=== PATIENT | male | born 1940 | race Caucasian/White ===

== ENCOUNTER 2017-09-08 04:51 | Day surgery (SDC) | payer MEDICARE ==
[~2017-09-08] VITALS: Ht 172.7 cm; Wt 74.4 kg
[~2017-09-08 04:51] MED LIST: ACET-1966 PO; ACET500T68 PO; ASCO-182 PO; ASPI-1471 PO; CALC600T63 PO; GABA-549 PO; GARL10005 PO; POTA99TA6 PO; SAW450CA3 PO; TRAM-420 PO
[2017-09-08] MEDS ORDERED: THROMBIN (BOVINE) 20,000 UNIT VIAL ONE (06:22)
[2017-09-08] MEDS ORDERED: MIDAZOLAM 2 MG/2 ML VIAL ONE (06:23)
[2017-09-08] MEDS ORDERED: DEXAMETHASONE SOD PHOS 10MG/ML ONE (06:24)
[2017-09-08] MEDS ORDERED: PROPOFOL EMUL(*) 10MG/ML 20 ML 20 ML ONE (06:24)
[2017-09-08] MEDS ORDERED: LIDOCAINE MPF 1% 5 ML VIAL ONE (06:24)
[2017-09-08] MEDS ORDERED: ONDANSETRON 4 MG/2 ML VIAL ONE (06:24)
[2017-09-08] MEDS ORDERED: ROCURONIUM BROM 10 MG/ML 10 ML ONE (06:24)
[2017-09-08] MEDS ORDERED: fentaNYL CITR 100 MCG/2 ML AMP ONE ×2 (06:24→08:56)
[2017-09-08 06:32] VITALS: BP 161/89
[2017-09-08] MEDS ORDERED: GLYCOPYRROLATE 0.2 MG/ML SDV ONE (07:36)
[2017-09-08] MEDS ORDERED: ePHEDrine 25 MG/5 ML DISP.SYR IVP ONE (07:37)
[2017-09-08] MEDS ORDERED: PHENYLEPHRINE 10 MG/1 ML VIAL ONE (07:47)
[2017-09-08] MEDS ORDERED: SUGAMMADEX SOD 500 MG/5 ML SDV ONE (08:15)
[2017-09-08] MEDS ORDERED: NS 0.9% IRRIGATION 1000ML PLCT IR ONE (08:28)
[2017-09-08 09:30] VITALS: BP 161/89
[2017-09-08 10:00] VITALS: BP 124/75
[2017-09-08 10:02] VITALS: BP 113/74
[2017-09-08] MEDS ORDERED: LIDOCAINE/SOD BICARB 8.4% SYR ID ONE (11:45)
[2017-09-08] MEDS ORDERED: ceFAZolin(*) 2GM/D5W 50ML 50 ML IVPB ONE (11:45)
[2017-09-08] MEDS ORDERED: FAMOTIDINE 20 MG TAB PO ONE (11:45)
[2017-09-08] MEDS ORDERED: NORMOSOL R SOLN(*) 1000 ML BAG 1,000 ML IV PRN (11:45)
[2017-09-08] MEDS ORDERED: MIDAZOLAM 2 MG/2 ML VIAL IVP ONE (11:45)
--- NOTE | 2017-09-08 14:21 | RADIOLOGY IMAGING REPORT ---
FACILITY: [facility] [place] PATIENT NAME: Guille Bradford : 1940 MR: [id number] V: [id number] EXAM DATE: ORDERING PHYSICIAN: SHARON BUSTAMANTE TECHNOLOGIST: Location: [facility] Patient: Guille Bradford : 1940 Visit/Account:[id number] Date of Sevice: 09/08/2017 Exam type: LUMBAR SPINE 1 VIEW History: L4-L5 DISC HERINATION Comparison: July 14, 2017. Findings: Three intraoperative prone crosstable lateral views the lumbar spine were submitted. On image one me tallic probe projects between the posterior spinous processes of L3 and L4. On image #2 metallic pro be projects over the posterior spinous process of L4. Sponge markers project in the operative field in addition to operative instruments. A third image demonstrates a metallic probe projecting over the pedicles of L5. IMPRESSION: 1. As above Report Dictated By: Liliam Aguila MD at 09/08/2017 2:14 PM Report E-Signed By: Liliam Aguila MD at 09/08/2017 2:17 PM WSN:[email or web address]
--- NOTE | 2017-09-09 03:59 | OPERATIVE REPORT 1 ---
EVENT DATE: September 08, 2017 SURGEON: Javad Fair MD ANESTHESIOLOGIST: Chino Muñoz MD ANESTHESIA: General endotracheal. BRACELET AND BROOCH MAKER: MARYA Salter, DIRECTOR SUPPLIER QUALITY PREOPERATIVE DIAGNOSIS Lumbar spinal stenosis with left greater than right L5 radiculopathy. POSTOPERATIVE DIAGNOSIS Lumbar spinal stenosis with left greater than right L5 radiculopathy. PROCEDURE PERFORMED L4-L5 laminectomy. IV FLUIDS 1100 mL. ESTIMATED BLOOD LOSS 50 mL. IMPLANTS None. SPECIMENS None. DRAINS None. COMPLICATIONS None. DISPOSITION Post anesthesia care unit. INDICATION FOR SURGERY Mr. Bradford is a 77-year-old male who presented to our clinic with a complaint of severe radiating pain, numbness and tingling down the left lower extremity in the posterior buttock, posterolateral thigh and lateral aspect of the lower leg. He had tried activity modifications, medications and some physical therapy with no real relief. His physical examination was normal with the exception of some weakness in the extensor hallucis longus on the left. His imaging studies showed degenerative disk disease at multiple levels with severe spinal stenosis at the L4-L5 level secondary to broad-based disk bulge with superimposed left paracentral disk bulge. There was thickened ligamentum flavum , facet hypertrophy, all contributing to the stenosis. Mr. Bradford was offered and elected to undergo L4-L5 laminectomy. Prior to surgery, I explained in detail to the patient the possible risks of surgery. This included the risk of bleeding, infection, spinal fluid leak, meningitis, nerve root injury, bowel and bladder dysfunction, sexual dysfunction , autonomic nervous system dysfunction, , blindness and other unforeseen medical and surgical complications. He voiced and understanding and wished to proceed. DESCRIPTION OF PROCEDURE On the date of surgery, the patient was admitted to the preoperative hold area, and all questions were answered. The operative site was identified and marked by myself. The patient was brought in good condition to the operating room, and after succumbing to anesthesia, placed in the prone position on a Rigoberto table. All bony protuberances and soft tissues were well padded in the standard fashion. Care was taken to maintain appropriate perfusion pressures during anesthesia. Preoperative antibiotics were administered according to the appropriate timing schedule. At the conclusion of the procedure, sponge and needle counts were correct x 2. A final time out was taken by members of the team to confirm correct patient, correct levels and correct surgery. An incision was then made over the intended spinal levels, and dissection was carried out, down to the posterior elements, which were cleared of soft tissues in a subperiosteal manner. A lateral radiograph was obtained to confirm appropriate spinal level. The spinous process of L4 was removed using a rongeur, and thinned in the midline. A Winston curette was used to undermine the insertion of the ligamentum flavum from the inferior aspect of the L4 lamina. A Catoosa elevator was used prior to the use of the Kerrison punch to ensure that all dural adhesions were freed from surrounding bone and soft tissue. A 4-0 Kerrison punch was used to perform a midline decompression. Bilateral lateral recess decompressions were then performed using a combination of 3-0 and 4-0 Kerrisons. At the conclusion of the decompression, a Catoosa elevator and a Oconnor probe were used to check the lateral recesses for any persistent compression. None was found. Foraminal decompressions were performed bilaterally, thoroughly decompressing the L4 and L5 nerve roots. Meticulous hemostasis was obtained using FloSeal and surgical paddies, and the wound was irrigated with copious sterile saline solution. The wound was then closed in layers using interrupted sutures for the deep fascia, inverted interrupted sutures for the superficial fascia, and then a running subcuticular skin stitch. Sponge and needle counts were correct x 2. POSTOPERATIVE CARE PLAN Mr. Bradford will remain in the hospital overnight and likely be discharged home postoperative day one. He will follow up in my clinic two weeks postoperatively for evaluation. ROSSY
== END 2017-09-08 09:36 | disposition home or self-care (01) ==
LOC: OR 04:51
PROVIDERS: ATTEND Orthopaedic Surgery
DX: M48.061 Spinal stenosis, lumbar region without neurogenic claudication (principal); M54.16 Radiculopathy, lumbar region
CPT/HCPCS: 63030; 72020; A9270; J1100; J2001; J2250; J2370; J2405; J2704; J3010; J3490; J0690